=== PATIENT | female | born 2000 | race Hispanic/Latino ===

== ENCOUNTER 2018-05-01 21:22 | Emergency (ER) | payer OTHER ==
[2018-05-01] MEDS ORDERED: EPINEPHrine INJ 0.1 MG/ML 10 ML SYG INJ ONE (21:40)
[2018-05-01] MEDS ORDERED: diphenhydrAMINE HCL 25 MG CAP PO ONE (21:41)
[2018-05-01] MEDS ORDERED: methylPREDNISolone SODIUM SUC 125 MG/2 ML VIAL IM ONE (21:41)
--- NOTE | 2018-05-01 21:41 | ED.PDOC ---
History of Present Illness - General Chief Complaint: Allergic Reaction Time Seen by Provider: 05/01/18 21:39 Source: patient Exam Limitations: no limitations - History of Present Illness Initial Comments: Patient presents with swelling of the upper lip, tingling of the fingers, and dyspnea that started just [employer]. She believes it is an allergic reaction but is not sure to what. No chest pain. No cardiac history. Denies history of asthma. Timing/Duration: 1/2 hour Severity: moderate Improving Factors: nothing Associated Symptoms: denies symptoms Allergies/Adverse Reactions: Allergies Bee Pollen Allergy (Verified 05/01/18 21:45) Bee Venom Allergy (Verified 05/01/18 21:45) Penicillins Allergy (Verified 05/01/18 21:45) Home Medications: Ambulatory Orders NK 05/01/18 Review of Systems - Review of Systems Constitutional: States: no symptoms reported EENTM: States: see HPI Respiratory: States: see HPI Cardiology: States: no symptoms reported Gastrointestinal/Abdominal: States: no symptoms reported Genitourinary: States: no symptoms reported Musculoskeletal: States: no symptoms reported Skin: States: no symptoms reported Neurological: States: no symptoms reported Endocrine: States: no symptoms reported Hematologic/Lymphatic: States: no symptoms reported Family Medical History - Family History Mother Family History: Unknown Physical Exam - Physical Exam General Appearance: Alert Eye Exam: bilateral normal Ears, Nose, Throat: other - upper lip is mildly edematous Neck: non-tender, full range of motion, supple Respiratory: lungs clear, normal breath sounds Cardiovascular/Chest: normal peripheral pulses, regular rate, rhythm, no edema Gastrointestinal/Abdominal: normal bowel sounds, non tender, soft Neurologic: no motor/sensory deficits, alert, normal mood/affect, oriented x 3 Skin Exam: normal color Lymphatic: no adenopathy Progress - Progress Progress: 05/01/18 23:39 Epinephrine 0.3 mg IM x one given. Benadryl 25 mg po x one and Zantac 150 mg po x one. Solumedrol 125 mg IM x one. Patient's symptoms resolved. Care instructions given. E.R. warnings given. Questions were elicited and answered. Patient voiced understanding and agreement with the plan. Departure - Departure Clinical Impression: Allergic reaction Disposition: Discharge to Home or Self Care Condition: Good Departure Forms: ED Discharge - Pt. Copy, Patient Portal Self Enrollment Instructions: DI for Allergic Rhinitis Diet: resume usual diet Activity: increase activity as tolerated Home Medications: Ambulatory Orders NK 05/01/18 Additional Instructions: See your regular doctor regarding allergy testing. Return to the E.R. for shortness of breath, hives, rash, difficulty swallowing, or swelling of the lips, tongue, or other part of the mouth.
[2018-05-01] MEDS ORDERED: EPINEPHrine HCL AMP 1 MG/ML AMP ONE (21:43)
[2018-05-01] MEDS ORDERED: EPINEPHrine HCL AMP 1 MG/ML AMP IM ONE (21:47)
[2018-05-01 22:38] VITALS: TEMP 98.7
[2018-05-01 23:17] VITALS: O2SAT 95
[2018-05-01 23:50] VITALS: BP 99/55
== END 2018-05-01 23:53 | disposition home or self-care (01) ==
LOC: ER 21:22
DX: T78.40XA Allergy, unspecified, initial encounter (principal); R06.00 Dyspnea, unspecified; R22.0 Localized swelling, mass and lump, head; R20.8 Other disturbances of skin sensation; Z88.0 Allergy status to penicillin; Z91.030 Bee allergy status
CPT/HCPCS: J2930; Q0163